=== PATIENT | male | born 1955 | race Hispanic/Latino ===

== ENCOUNTER 2018-03-25 00:33 | Emergency (ER) | payer OTHER ==
[2018-03-25] MEDS ORDERED: Sodium Chloride 0.9% 1,000 ML IV STA (01:05)
[2018-03-25 01:21] LABS: BASO % 0.4 % (0.0-2.0); EOS # 0.3 K/uL (0.0-0.7); EOS % 3.5 % (0.0-4.0); HEMOGLOBIN 13.8 g/dL (12.0-18.0); LYMPH # 1.8 K/uL (1.0-4.3); MEAN CORPUSCULAR HEMOGLOBIN 31.4 pg (27.0-31.0); MEAN CORPUSCULAR HGB CONC 33.7 g/dL (33.0-37.0); MEAN PLATELET VOLUME 7.9 fl (7.2-11.7); MONO # 0.6 K/uL (0.0-0.8); MONO % 7.4 % (0.0-10.0); NEUT # 5.7 K/uL (1.8-7.0); NEUT % 67.7 % (50.0-75.0); RBC 4.4 Mil/uL (4.40-5.90); RED CELL DISTRIBUTION WIDTH 13.1 % (11.5-14.5); WHITE BLOOD COUNT 8.4 K/uL (4.8-10.8)
[2018-03-25 01:29] VITALS: O2SAT 100
[2018-03-25 01:38] LABS: ALB/GLOB RATIO 1.2 (1.0-2.1); ALBUMIN 3.6 g/dL (3.5-5.0); ALT/SGPT 33 U/L (21-72); AST/SGOT 23 U/L (17-59); BLOOD UREA NITROGEN 20 mg/dl (9-20); GFR AFRICAN-AMERICAN > 60; GFR NON-AFRICAN AMERICAN > 60
[2018-03-25] MEDS ORDERED: Potassium Chloride 20 mEq ER Tab PO ONE ×2 (01:44→01:57)
[2018-03-25 02:13] LABS: INR 1.2 (0.9-1.2); PARTIAL THROMBOPLASTIN TIME 23.7 Seconds (25.6-37.1); PROTHROMBIN TIME 12.8 Seconds (9.8-13.1)
[2018-03-25 03:13] VITALS: BP 109/72; PULSE 76; RESP 18
--- NOTE | 2018-03-25 04:00 | ED PDOC ---
Syncope/Near Syncope/Dizziness Time Seen by Provider: 03/25/18 00:48 Chief Complaint (Nursing): Syncope Chief Complaint (Provider): Syncopal episode History Per: Patient, Family () History/Exam Limitations: no limitations Current Symptoms Are (Timing): Gone Now Number Of Syncopal Episodes: 1 Associated Symptoms Preceding Syncopal Episode: Lightheadedness Additional History Per: Patient Additional Complaint(s): 62yo male, with no past medical history, presents to ER for evaluatio after he had a syncopal episode. Patient states he [place] son the [employer] [place] with his and felt hot ( also reports it was hot in the train); patient states he had drank 1 cup of coffee at 3PM and was at a concert. He reports feeling lightheaded in the train and lowered himself to the ground after which he had a 2-3 second syncopal episode (witnessed by ). En route to the ER, patient was given 500cc of fluids and IV Zofran with improvement in his symptoms. Patient states he had a similar episode many years ago. He currently reports mild dizziness but denies any chest pain, shortness of breath, and offers no other medical complaints. PMD: Non CPH Past Medical History Reviewed: Historical Data, Nursing Documentation, Vital Signs Vital Signs: Last Vital Signs Temp Pulse 76 03/25/18 03:12 Resp 18 03/25/18 03:12 BP 109/72 03/25/18 03:12 Pulse Ox 100 03/25/18 03:12 - Medical History PMH: Benign Prostatic Hyperplasia - Surgical History Surgical History: Hernia Repair (left inguinal) Other surgeries: nerve reconstruction left arm, right knee reconstruction - Family History Family History: States: No Known Family Hx - Living Arrangements Living Arrangements: With Family - Social History Current smoker - smoking cessation education provided: No Alcohol: Occasional Drugs: Denies - Allergies Allergies/Adverse Reactions: Allergies Allergy/AdvReac Type Severity Reaction Status Date / Time Penicillins Allergy RASH Verified 03/25/18 00:55 Review of Systems ROS Statement: Except As Marked, All Systems Reviewed And Found Negative Constitutional: Negative for: Fever, Chills Cardiovascular: Negative for: Chest Pain Respiratory: Negative for: Shortness of Breath Gastrointestinal: Negative for: Nausea, Vomiting Neurological: Positive for: Dizziness, Other (syncopal episode) Physical Exam - Reviewed Nursing Documentation Reviewed: Yes Vital Signs Reviewed: Yes - Physical Exam Appears: Positive for: Non-toxic, No Acute Distress Head Exam: Positive for: ATRAUMATIC, NORMAL INSPECTION, NORMOCEPHALIC Skin: Positive for: Dry, Pallor Eye Exam: Positive for: Normal appearance ENT: Positive for: Other (tacky mucus membranes) Neck: Positive for: Normal, Supple Cardiovascular/Chest: Positive for: Regular Rate, Rhythm Respiratory: Positive for: Normal Breath Sounds. Negative for: Wheezing Gastrointestinal/Abdominal: Positive for: Normal Exam, Soft. Negative for: Tenderness Back: Positive for: Normal Inspection. Negative for: Vertebral Tenderness Extremity: Positive for: Normal ROM. Negative for: Deformity Neurologic/Psych: Positive for: Alert, Oriented. Negative for: Motor/Sensory Deficits - Laboratory Results Result Diagrams: 03/25/18 01:18 03/25/18 01:18 - ECG O2 Sat by Pulse Oximetry: 100 (RA) Pulse Ox Interpretation: Normal Medical Decision Making Medical Decision Making: Impression: Acute syncope in setting of clinical dehydration Plan: -- Labs -- IV Fluids Time: 0230 Labs reviewed and significant for mild decrease in potassium levels. Patient given KCL 20meq PO. Stable for discharge home, instructed to follow up with his PMD in 2-3 days. Diagnosis: Syncope, dehydration, hypokalemia Scribe Attestation: Documented by Lucila Gayle, acting as a scribe for Juan José Kilpatrick MD Provider Scribe Attestation: All medical record entries made by the Scribe were at my direction and personally dictated by me. I have reviewed the chart and agree that the record accurately reflects my personal performance of the history, physical exam, medical decision making, and the department course for this patient. I have also personally directed, reviewed, and agree with the discharge instructions and disposition. Disposition - Clinical Impression Clinical Impression: Syncope, Hypokalemia, Dehydration - Disposition Disposition: Routine/Home Disposition Time: 02:30 Condition: STABLE Instructions: Syncope (Fainting), Hypokalemia Forms: [facility] (Swazi)
--- NOTE | 2018-03-25 09:08 | CARD ---
APPROVED REPORT EKG Measurement Heart [id number] <Conclusion> Normal sinus rhythm Possible Left atrial enlargement Borderline ECG
== END 2018-03-25 03:13 | disposition home or self-care (01) ==
LOC: H.ER 00:33
DX: R55 Syncope and collapse (principal); E87.6 Hypokalemia; E86.0 Dehydration; N40.0 Benign prostatic hyperplasia without lower urinary tract symptoms; Z88.0 Allergy status to penicillin
CPT/HCPCS: 80053; 80320; 82948; 84484; 85025; 85610; 85730; 93005; 96360; 99285; J7040